=== PATIENT | male | born 1955 | race African-American/Black ===

== ENCOUNTER 2016-10-25 03:26 | Observation (INO) | payer SELFPAY ==
[~2016-10-25] VITALS: Ht 177.8 cm; Wt 72.0 kg
[2016-10-25] VITALS (10 sets, daily range): BP systolic 130–217; BP diastolic 77–110; PULSE 63–82; RESP 14–24; TEMP 98–98.8; O2SAT 96–100
--- NOTE | 2016-10-25 03:44 | PD ---
HPI Chief Complaint: Abdominal Pain Time Seen by Provider: 03:31 Travel History International Travel<30 days: No Contact w/Intl Traveler<30days: No Traveled to known affect area: No History of Present Illness HPI The patient is a 60 year old male who presents to the [facility] emergency department with a history of left flank pain that he reports began at 10 PM last night. The patient reports that the pain is constant and a 10 out of 10 in severity. He reports that the pain is sharp in character. He reports that it has been associated with nausea and vomiting. He reports that he vomited approximately 10 times. He denies having any diarrhea. He last moved his bowels earlier this evening. He reports that he did not check to see if there is any blood in his stool. He denies having any dysuria, urinary frequency, or urinary urgency. He denies seeing any blood in his urine. He denies ever having a pain like this previously. He denies having any recent trauma or injury to the area. He denies having any radiation of the pain. He reports that the only thing that makes it better is to lay on his side in the position. He denies any aggravating factors. On review of systems, the patient denies having any recent known fevers, cough, congestion, neck pain, chest pain, shortness of breath, diarrhea, or neurologic symptoms. [facility] Past Medical History Narrative Medical The patient's past medical history is reportedly none. Past Surgical History Narrative Surgical The patient's past surgical history is reportedly none. Social History Alcohol Use: No Tobacco Use: Yes (one pack per day) Substance Use: No Allergies-Medications (Allergen,Severity, Reaction): Coded Allergies: No Known Allergies (Unverified , 10/25/16) Narrative Medication The patient denies taking any prescribed medications. Review of Systems Except as stated in HPI: all other systems reviewed are Neg General / Constitutional: No: Fever Eyes: No: Visual changes HENT: No: Headaches Cardiovascular: No: Chest Pain or Discomfort Respiratory: No: Shortness of Breath Gastrointestinal: Positive: Nausea, Vomiting, Abdominal Pain, No: Diarrhea Genitourinary: Positive: Flank Pain (left flank pain), No: Urgency, Frequency, Dysuria Musculoskeletal: Positive: Myalgias, No: Pain Skin: No Rash Neurologic: No: Weakness, Focal Abnormalities, Headache, Change in Mentation, Slurred Speech, Sensory Disturbance Psychiatric: No: Depression Endocrine: No: Polydipsia Hematologic/Lymphatic: No: Easy Bruising Physical Exam Narrative General: The patient is a well-developed well-nourished male, uncomfortable appearing on arrival with intermittent dry heaving. Head and Neck exam: Head is normocephalic atraumatic. Eyes: EOMI, pupils are equal round and reactive to light. Nose: Midline septum with pink mucous membranes Mouth: Dentition unremarkable. Moist mucus membranes. Posterior oropharynx is not erythematous. No tonsillar hypertrophy. Uvula midline. Airway patent. Neck: No palpable lymphadenopathy. No nuchal rigidity. No thyromegaly. Cardiovascular: Sinus tachycardia in the low 100 without murmurs, gallops, or rubs. No pulse deficit to the extremities and simultaneous auscultation and palpation of his radial artery. Lungs: Clear to auscultation bilaterally. No wheezes, rhonchi, or rales. Abdomen: Soft, without tenderness to palpation in all 4 quadrants of the abdomen. No guarding, rebound, or rigidity. Normal bowel sounds are audible. No tenderness on palpation of McBurney's point. Negative Banks's sign. Extremities: No clubbing, cyanosis, or edema. 2+ pulses in all 4 extremities. No calf tenderness on palpation. Back: No spinous process tenderness to palpation. Left-sided CVA tenderness on palpation that extends down to the left buttock. Neurologic Exam: Grossly nonfocal Skin Exam: No rash noted. Intact skin that is warm and dry. Data Data Last Documented VS Vital Signs Date Time Temp Pulse Resp B/P (MAP) Pulse Ox O2 Delivery O2 Flow Rate FiO2 10/25/16 07:00 67 17 181/91 (121) 98 Room Air Orders Orders Electrocardiogram (10/25/16 03:38) Complete Blood Count With Diff (10/25/16 03:38) Comprehensive Metabolic Panel (10/25/16 03:38) Prothrombin Time / Inr (Pt) (10/25/16 03:38) Act Partial Throm Time (Ptt) (10/25/16 03:38) C-Reactive Protein (Crp) (10/25/16 03:38) Lipase (10/25/16 03:38) Urinalysis - C+S If Indicated (10/25/16 03:38) Magnesium (Mg) (10/25/16 03:38) Chest, Single Ap (10/25/16 03:38) Iv Access Insert/Monitor (10/25/16 03:38) Ecg Monitoring (10/25/16 03:38) Oximetry (10/25/16 03:38) Lactic Acid (10/25/16 03:38) Sodium Chlor 0.9% 1000 Ml Inj (Ns 1000 M (10/25/16 03:45) Ketorolac Inj (Toradol Inj) (10/25/16 03:45) Prochlorperazine Inj (Compazine Inj) (10/25/16 03:45) Ct Abd/Pel W Iv Contrast(Rout) (10/25/16 05:42) Sodium Chlor 0.9% 1000 Ml Inj (Ns 1000 M (10/25/16 05:45) Iohexol 350 Inj (Omnipaque 350 Inj) (10/25/16 06:22) Lactic Acid (10/25/16 07:07) Admit Order (Ed Use Only) (10/25/16 07:28) Place In Observation (10/25/16 ) Vital Signs (Adult) Q4H (10/25/16 07:29) Activity Oob With Assistance (10/25/16 07:29) Intake + Output KEESHA.QSHIFT (10/25/16 07:29) Diet Npo (10/25/16 Breakfast) Sodium Chlor 0.9% 1000 Ml Inj (Ns 1000 M (10/25/16 07:29) Sodium Chloride 0.9% Flush (Ns Flush) (10/25/16 07:30) Sodium Chloride 0.9% Flush (Ns Flush) (10/25/16 09:00) Ondansetron Inj (Zofran Inj) (10/25/16 07:30) Comprehensive Metabolic Panel (10/26/16 06:00) Complete Blood Count With Diff (10/26/16 06:00) Case Management Consult (10/25/16 07:29) Scd Bilateral/Knee High KEESHA.BID (10/25/16 07:29) Naloxone Inj (Narcan Inj) (10/25/16 07:30) Magnesium Hydroxide Liq (Milk Of Magnesi (10/25/16 07:30) Sennosides (Senokot) (10/25/16 07:30) Bisacodyl Supp (Dulcolax Supp) (10/25/16 07:30) Lactulose Liq (Lactulose Liq) (10/25/16 07:30) Drug Screen, Random Urine (10/25/16 07:32) Labs Laboratory Tests Test 10/25/16 03:53 10/25/16 05:30 10/25/16 07:00 Blood Urea Nitrogen 15 MG/DL Creatinine 1.53 MG/DL Random Glucose 142 MG/DL Total Protein 7.8 GM/DL Albumin 3.7 GM/DL Calcium Level 8.4 MG/DL Magnesium Level 2.1 MG/DL Alkaline Phosphatase 75 U/L Aspartate Amino Transf (AST/SGOT) 26 U/L Alanine Aminotransferase (ALT/SGPT) 16 U/L Total Bilirubin 0.6 MG/DL Sodium Level 139 MEQ/L Potassium Level 3.6 MEQ/L Chloride Level 106 MEQ/L Carbon Dioxide Level 27.5 MEQ/L Anion Gap 6 MEQ/L Estimat Glomerular Filtration Rate 47 ML/MIN Lactic Acid Level 2.4 mmol/L C-Reactive Protein 0.86 MG/DL Lipase 123 U/L White Blood Count 8.9 TH/MM3 Red Blood Count 4.10 MIL/MM3 Hemoglobin 12.6 GM/DL Hematocrit 38.2 % Mean Corpuscular Volume 93.2 FL Mean Corpuscular Hemoglobin 30.7 PG Mean Corpuscular Hemoglobin Concent 32.9 % Red Cell Distribution Width 12.9 % Platelet Count 191 TH/MM3 Mean Platelet Volume 8.6 FL Neutrophils (%) (Auto) 82.6 % Lymphocytes (%) (Auto) 10.8 % Monocytes (%) (Auto) 6.0 % Eosinophils (%) (Auto) 0.4 % Basophils (%) (Auto) 0.2 % Neutrophils # (Auto) 7.3 TH/MM3 Lymphocytes # (Auto) 1.0 TH/MM3 Monocytes # (Auto) 0.5 TH/MM3 Eosinophils # (Auto) 0.0 TH/MM3 Basophils # (Auto) 0.0 TH/MM3 CBC Comment DIFF FINAL Differential Comment Prothrombin Time 10.9 SEC Prothromb Time International Ratio 1.0 RATIO Activated Partial Thromboplast Time 23.0 SEC Urine Color LIGHT-YELLOW Urine Turbidity CLEAR Urine pH 7.5 Urine Specific Seale 1.009 Urine Protein NEG mg/dL Urine Glucose (UA) 70 mg/dL Urine Ketones NEG mg/dL Urine Occult Blood NEG Urine Nitrite NEG Urine Bilirubin NEG Urine Urobilinogen LESS THAN 2.0 MG/DL Urine Leukocyte Esterase NEG Urine RBC LESS THAN 1 /hpf Urine WBC LESS THAN 1 /hpf Urine Squamous Epithelial Cells <1 /hpf Microscopic Urinalysis Comment CULT NOT INDICATED MDM Medical Decision Making Medical Screen Exam Complete: Yes Emergency Medical Condition: Yes Medical Record Reviewed: Yes Interpretation(s) Last Impressions Abdomen/Pelvis CT 10/25/16 0542 Signed Impressions: Service Date/Time: Tuesday, October 25, 2016 06:14 - CONCLUSION: Normal examination. Kelby Madrid Jr., MD Chest X-Ray 10/25/16 0338 Signed Impressions: Service Date/Time: Tuesday, October 25, 2016 04:00 - CONCLUSION: Mild cardiomegaly. Kelby Madrid Jr., MD Differential Diagnosis Kidney stone, versus lower lobe pneumonia, versus musculoskeletal strain, versus viral syndrome, versus perforated ulcer Narrative Course During the course of the patients emergency department visit, the patients history, examination, and differential diagnosis were reviewed with the patient. The patient had IV access obtained and blood work sent for analysis. The patient was placed on a ekg monitor tech with oximetry and blood pressure monitoring. An ECG was done on arrival. The patient's ECG reveals a sinus rhythm heart rate of 61, left ventricular hypertrophy by voltage is noted, QRS duration is 83 ms, QTC 464 ms. T waves are noted to be inverted in V4, V5, V6, lead 1 and aVL. The patient was initially provided normal saline, Toradol 15 mg IV, Compazine 5 mg IV The patients laboratory studies were reviewed and remarkable for a white count of 8.9, hemoglobin 12.6, platelets 191, neutrophils 82.6, CMP is remarkable for creatinine 1.53, glucose 142, calcium 8.4, C-reactive protein is 0.86, lipase 123. Lactic acid is 2.4, PT 10.9, PTT 23. Given the patient's elevated lactate patient was given a second liter of normal saline IV fluids as I suspect that the patient's lactic acidosis is related to dehydration and intractable vomiting per. PT 10.9, PTT 23, urinalysis shows 70 glucose Radiology studies were reviewed and remarkable for a chest x-ray that shows mild cardiomegaly no other acute findings. CT scan of the abdomen and pelvis shows a normal examination, no acute findings. The patient was reexamined and reportedly continued to have pain. The patient will be given additional pain medication to include morphine 4 mg IV, Zofran 4 mg IV. The patient face to be nauseated. The patient will be admitted to the hospital for dehydration, intractable vomiting and pain. The patients results were discussed with the patient, including the plan of care. I explained that further testing and/ or monitoring is indicated based on the patients history, examination, and/ or laboratory findings. Therefore, I recommended admission for additional evaluation. The patient expressed understanding and was agreeable with this plan. The patient was admitted to the hospital in stable condition and [facility] Phys[facility] Communication Physician Communication The patient's case was discussed with Dr. Patel who did agree to admit the patient for further evaluation and treatment at this time. Diagnosis Primary Impression: Dehydration Additional Impressions: Lactic acidosis Intractable vomiting Qualified Codes: R11.2 - Nausea with vomiting, unspecified Admitting Information Admitting Physician Requests: Observation Diane Miller MD Oct 25, 2016 03:44
[2016-10-25] MEDS ORDERED: KETOROLAC TROMETHAMINE 30 MG/ML (IVP) VIAL IV PUSH ONE (03:45)
[2016-10-25] MEDS ORDERED: SODIUM CHLOR 0.9% 1000 ML INJ 1,000 ML IV ONE ×2 (03:45→05:45)
[2016-10-25] MEDS ORDERED: PROCHLORPERAZINE INJ 10 MG/2 ML VIAL IV PUSH ONE (03:45)
[2016-10-25 04:29] LABS: ALKALINE PHOSPHATASE 75 U/L (45-117); TOTAL BILIRUBIN ADULT 0.6 MG/DL (0.2-1.0)
[2016-10-25 04:33] LABS: ALT (GPT) 16 U/L (12-78); ANION GAP 6 MEQ/L (5-15); AST (GOT) 26 U/L (15-37); BICARBONATE 27.5 MEQ/L (21.0-32.0); BLOOD UREA NITROGEN 15 MG/DL (7-18); CHLORIDE 106 MEQ/L (98-107); GLOMERULAR FILTRATION RATE 47 ML/MIN (>89); MAGNESIUM 2.1 MG/DL (1.5-2.5); POTASSIUM 3.6 MEQ/L (3.5-5.1); SODIUM (NA) 139 MEQ/L (136-145)
--- NOTE | 2016-10-25 04:48 | RADRPT ---
EXAM DATE/TIME: 10/25/2016 04:00 [facility] COMPARISON: No previous studies available for comparison. INDICATIONS : Shortness of breath. MEDICAL HISTORY : None. SURGICAL HISTORY : None. ENCOUNTER: Initial ACUITY: 1 day PAIN SCORE: 8/10 LOCATION: Bilateral chest FINDINGS: A single view of the chest demonstrates the lungs to be symmetrically aerated without evidence of mas s, infiltrate or effusion. The heart is mildly enlarged. Osseous structures are intact. CONCLUSION: Mild cardiomegaly. Kelby Madrid Jr., MD on October 25, 2016 at 4:46 Board Certified Radiologist. This report was verified electronically.
[2016-10-25 05:44] LABS: BLOOD, URINE NEG (NEG); GLUCOSE,URINE 70 mg/dL (NEG); KETONE, URINE NEG (NEG); NITRITE,URINE NEG (NEG); PH, URINE 7.5 (5.0-8.5); SQUAMOUS EPITHELIAL CELL URINE <1 /hpf (0-5); URINE COLOR LIGHT-YELLOW (YELLW/STRAW)
[2016-10-25 05:47] LABS: COMMENT (UR) CULT NOT INDICATED; CULTURE IF INDICATED CULT NOT INDICATED
[2016-10-25 05:52] LABS: AUTOMATED NEUTROPHIL # 7.3 TH/MM3 (1.8-7.7); BASOPHIL % 0.2 % (0.0-2.0); EOSINOPHIL % 0.4 % (0.0-4.0); HEMATOCRIT 38.2 % (39.0-51.0); HEMO FLAGS DIFF FINAL; LYMPH % 10.8 % (9.0-44.0); MEAN CELL VOLUME 93.2 FL (80.0-100.0); MEAN CORPUSCULAR HEMOGLOBIN 30.7 PG (27.0-34.0); MEAN CORPUSCULAR HGB CONC 32.9 % (32.0-36.0); NEUT % 82.6 % (16.0-70.0); PLATELET COUNT 191 TH/MM3 (150-450); RED CELL DISTRIBUTION WIDTH 12.9 % (11.6-17.2); WHITE BLOOD COUNT 8.9 TH/MM3 (4.0-11.0)
[2016-10-25 05:59] LABS: PROTHROMBIN TIME - PATIENT 10.9 SEC (9.8-11.6)
[2016-10-25] MEDS ORDERED: IOHEXOL 350 MG/ML 10 ML VIAL (for RAD DIAG) IVCONTRAST ONE (06:22)
--- NOTE | 2016-10-25 06:34 | RADRPT ---
EXAM DATE/TIME: 10/25/2016 06:14 [facility] COMPARISON: No previous studies available for comparison. INDICATIONS : Left flank pain and vomiting. IV CONTRAST: 95 cc Omnipaque 350 (iohexol) IV ORAL CONTRAST: No oral contrast ingested. RADIATION DOSE: 6.64 CTDIvol (mGy) MEDICAL HISTORY : None SURGICAL HISTORY : None. ENCOUNTER: Initial ACUITY: 1 day PAIN SCALE: 7/10 LOCATION: Left abdomen TECHNIQUE: Volumetric scanning of the abdomen and pelvis was performed. Using automated exposure control and ad justment of the mA and/or kV according to patient size, radiation dose was kept as low as reasonably achievable to obtain optimal diagnostic quality images. DICOM format image data is available electro nically for review and comparison. FINDINGS: LOWER LUNGS: The visualized lower lungs are clear. LIVER: Homogeneous density without lesion. There is no dilation of the biliary tree. No calcified gallston es. SPLEEN: Normal size without lesion. PANCREAS: Within normal limits. KIDNEYS: Normal in size and shape. There is no mass, stone or hydronephrosis. ADRENAL GLANDS: Within normal limits. VASCULAR: There is no aortic aneurysm. BOWEL/MESENTERY: The stomach, small bowel, and colon demonstrate no acute abnormality. There is no free intraperitone al air or fluid. ABDOMINAL WALL: Within normal limits. RETROPERITONEUM: There is no lymphadenopathy. BLADDER: No wall thickening or mass. REPRODUCTIVE: Within normal limits. INGUINAL: There is no lymphadenopathy or hernia. MUSCULOSKELETAL: Within normal limits for patient age. CONCLUSION: Normal examination. Kelby Madrid Jr., MD on October 25, 2016 at 6:30 Board Certified Radiologist. This report was verified electronically.
[2016-10-25] MEDS ORDERED: SENNOSIDES 8.6 MG TAB PO PRN (07:30)
[2016-10-25] MEDS ORDERED: MAGNESIUM HYDROXIDE SUSP 30 ML CUP PO PRN (07:30)
[2016-10-25] MEDS ORDERED: LACTULOSE SYRUP 20 GM/30 ML CUP PO PRN (07:30)
[2016-10-25] MEDS ORDERED: ONDANSETRON HCL 4 MG/2 ML VIAL IVP PRN (07:30)
[2016-10-25] MEDS ORDERED: NALOXONE HCL 0.4 MG/ML AMP IV PUSH PRN (07:30)
[2016-10-25] MEDS ORDERED: SODIUM CHLORIDE 0.9% FLUSH 10 ML FLUSH IV FLUSH PRN (07:30)
[2016-10-25] MEDS ORDERED: BISACODYL 10 MG SUPP RECTAL PRN (07:30)
[2016-10-25] MEDS ORDERED: MORPHINE SULFATE 4 MG/ML INJ IV PUSH ONE (08:00)
[2016-10-25] MEDS ORDERED: ONDANSETRON HCL 4 MG/2 ML VIAL IV PUSH ONE (08:00)
[2016-10-25] MEDS: SODIUM CHLOR 0.9% 1000 ML INJ 1,000 ML IV SCH ×2 (08:05→17:28)
[2016-10-25] MEDS: SODIUM CHLORIDE 0.9% FLUSH 10 ML FLUSH IV FLUSH SCH ×2 (09:00→21:00)
--- NOTE | 2016-10-25 09:30 | RADRPT ---
EXAM DATE/TIME: 10/25/2016 06:15 [facility] COMPARISON: No previous studies available for comparison. INDICATIONS : Left back pain. Evaluate for osteomyelitis. RADIATION DOSE: ; Reconstructed from previous dataset, no dose MEDICAL HISTORY : None SURGICAL HISTORY : None. ENCOUNTER: Initial ACUITY: 1 day PAIN SCALE: 7/10 LOCATION: Left flank TECHNIQUE: Volumetric scanning of the lumbar spine was performed. Multiplanar reconstructions in the sagittal, coronal and oblique axial planes were performed. Using automated exposure control and adjustment of the mA and/or kV according to patient size, radiation dose was kept as low as reasonably achievable t o obtain optimal diagnostic quality images. DICOM format image data is available electronically for review and comparison. FINDINGS: VERTEBRAE: Normal vertebral body height. ALIGNMENT: No evidence of subluxation. T12-L1: The thecal sac has a normal diameter. No evidence of disc bulge or protrusion. The neural foramina are patent bilaterally. L1-L2: The thecal sac has a normal diameter. No evidence of disc bulge or protrusion. The neural foramina are patent bilaterally. L2-L3: The thecal sac has a normal diameter. No evidence of disc bulge or protrusion. The neural foramina are patent bilaterally. L3-L4: There is generalized disc bulging at L3-4 flattening in typical space with moderate spinal stenosis. L4-L5: The thecal sac has a normal diameter. No evidence of disc bulge or protrusion. The neural foramina are patent bilaterally. L5-S1: Marked loss of disc space height is evident. Vacuum changes are noted. Generalized bulge is present with moderate bilateral neural foramina encroachment worse on the right than the left. There is no bony destruction, end plates are well-preserved. I did not see anything to suggest osteo myelitis at this time. CONCLUSION: Degenerative disc disease as described above. I do not see evidence for an inflammatory process. MRI with contrast be more sensitive for such. Timi Holm MD FACR on October 25, 2016 at 9:26 Board Certified Radiologist. This report was verified electronically.
[2016-10-25] MEDS ORDERED: LIDOCAINE HCL 1% PF 5 ML AMPULE OTHER ONE (09:42)
[2016-10-25] MEDS ORDERED: PROPOFOL 200 MG/20 ML AMP IV ONE ×2 (09:42→16:02)
[2016-10-25] MEDS ORDERED: ESMOLOL HCL 100 MG/10 ML VIAL IV ONE (09:42)
[2016-10-25] MEDS ORDERED: MORPHINE SULFATE 4 MG/ML INJ IV ONE (09:42)
[2016-10-25] MEDS ORDERED: SUCCINYLCHOLINE CHLORIDE 100 MG/5 ML SYRINGE IV PUSH ONE (09:42)
[2016-10-25] MEDS ORDERED: LABETALOL HCL 100 MG/20 ML VIAL IV ONE (09:42)
[2016-10-25] MEDS ORDERED: THIAMINE HCL 100 MG TAB PO ONE (11:30)
--- NOTE | 2016-10-25 12:01 | HHI.HP ---
HPI Service [facility] Primary Care Physician No Primary Care Physician Admission Diagnosis Dehydration, intractable vomiting, left flank pain Diagnoses: Travel History International Travel<30 Days: No Contact w/Intl Traveler <30 Da: No Traveled to Known Affected Are: No History of Present Illness 60-year-old male with a history of H. pylori in 2003, who presents with acute onset of constant, severe, sharp, nonradiating left flank pain beginning around 10 PM last night. He also reports nausea beginning around 10 PM last night, with multiple episodes of nonbloody, [id number]-[id number] emesis. He says he does feel as if he has fevers and chills since this time, however has not measured any fevers. He denies any diarrhea or constipation. He denies any aggravating or relieving factors. He says he does feel lightheaded since last night, however does not feel as if she will pass out; denies any dizziness. He reports previously feeling all right. Denies any chest pain, shortness of breath. Denies any recent injuries. Denies any leg pain. Review of Systems Except as stated in HPI: all other systems reviewed are Neg Past Family Social History Past Medical History Patient denies any past medical history, however another profile here in 2003 shows a presented with nausea and hematemesis, underwent EGD, biopsies from which showed H. pylori. Past Surgical History Patient denies any history of surgeries. Although reviewing duplicate profile, and appears he had an EGD with biopsy performed in 2003 Reported Medications Patient denies taking any medications. Allergies: Coded Allergies: No Known Allergies (Unverified , 10/25/16) Family History Patient reports both parents , does not know what they from Social History Patient smokes on average one pack per day since he was a teenager. Drinks on average 2 beers per day. Denies any history of withdrawal. He initially denies illicit drugs, however his girlfriend at bedside reports he does cocaine. Physical Exam Vital Signs Vital Signs Date Time Temp Pulse Resp B/P (MAP) Pulse Ox O2 Delivery O2 Flow Rate FiO2 10/25/16 08:36 98.0 70 21 184/102 (129) 96 10/25/16 08:29 10/25/16 08:17 82 17 182/100 (127) 98 Room Air 10/25/16 07:00 67 17 181/91 (121) 98 Room Air 10/25/16 06:10 78 14 181/96 (124) 99 Room Air 10/25/16 03:34 63 24 217/107 (143) 100 Physical Exam GENERAL: Somnolent, wakes up for exam. Alert and oriented 3. SKIN: No rashes, ecchymoses or lesions. Cool and dry. HEAD: Atraumatic. Normocephalic. No temporal or scalp tenderness. EYES: Pupils equal round and reactive. Extraocular motions intact. No scleral icterus. No injection or drainage. ENT: Nose without bleeding, purulent drainage or septal hematoma. Throat without erythema, tonsillar hypertrophy or exudate. Uvula midline. Airway patent. NECK: Trachea midline. No JVD or lymphadenopathy. Supple, nontender, no meningeal signs. CARDIOVASCULAR: Regular rate and rhythm without murmurs, gallops, or rubs. RESPIRATORY: Clear to auscultation. Breath sounds equal bilaterally. No wheezes , rales, or rhonchi. GASTROINTESTINAL: Abdomen soft, non-tender, nondistended. No hepato-splenomegaly , or palpable masses. No guarding. MUSCULOSKELETAL: Extremities without clubbing, cyanosis, or edema. No joint tenderness, effusion, or edema noted. No calf tenderness. Negative Homans sign bilaterally. NEUROLOGICAL: Awake and alert. Cranial nerves II through XII intact. Motor and sensory grossly within normal limits. Five out of 5 muscle strength in all muscle groups. Normal speech. Laboratory Laboratory Tests Test 10/25/16 03:53 10/25/16 05:30 10/25/16 07:00 Blood Urea Nitrogen 15 Creatinine 1.53 Random Glucose 142 Total Protein 7.8 Albumin 3.7 Calcium Level 8.4 Magnesium Level 2.1 Alkaline Phosphatase 75 Aspartate Amino Transf (AST/SGOT) 26 Alanine Aminotransferase (ALT/SGPT) 16 Total Bilirubin 0.6 Sodium Level 139 Potassium Level 3.6 Chloride Level 106 Carbon Dioxide Level 27.5 Anion Gap 6 Estimat Glomerular Filtration Rate 47 Lactic Acid Level 2.4 2.6 C-Reactive Protein 0.86 Lipase 123 White Blood Count 8.9 Red Blood Count 4.10 Hemoglobin 12.6 Hematocrit 38.2 Mean Corpuscular Volume 93.2 Mean Corpuscular Hemoglobin 30.7 Mean Corpuscular Hemoglobin Concent 32.9 Red Cell Distribution Width 12.9 Platelet Count 191 Mean Platelet Volume 8.6 Neutrophils (%) (Auto) 82.6 Lymphocytes (%) (Auto) 10.8 Monocytes (%) (Auto) 6.0 Eosinophils (%) (Auto) 0.4 Basophils (%) (Auto) 0.2 Neutrophils # (Auto) 7.3 Lymphocytes # (Auto) 1.0 Monocytes # (Auto) 0.5 Eosinophils # (Auto) 0.0 Basophils # (Auto) 0.0 CBC Comment DIFF FINAL Differential Comment Prothrombin Time 10.9 Prothromb Time International Ratio 1.0 Activated Partial Thromboplast Time 23.0 Urine Color LIGHT-YELLOW Urine Turbidity CLEAR Urine pH 7.5 Urine Specific [place] 1.009 Urine Protein NEG Urine Glucose (UA) 70 Urine Ketones NEG Urine Occult Blood NEG Urine Nitrite NEG Urine Bilirubin NEG Urine Urobilinogen LESS THAN 2.0 Urine Leukocyte Esterase NEG Urine RBC LESS THAN 1 Urine WBC LESS THAN 1 Urine Squamous Epithelial Cells <1 Microscopic Urinalysis Comment CULT NOT INDICATED Urine Opiates Screen NEG Urine Barbiturates Screen NEG Urine Amphetamines Screen NEG Urine Benzodiazepines Screen NEG Urine Cocaine Screen POS Urine Cannabinoids Screen NEG Result Diagram: 10/25/16 0530 10/25/16 0353 Caprini VTE Risk Assessment Caprini VTE Risk Assessment: No/Low Risk (score <= 1) Caprini Risk Assessment Model Point Value = 1 Point Value = 2 Point Value = 3 Point Value = 5 Age 41-60 Minor surgery BMI > 25 kg/m2 Swollen legs Varicose veins or History of unexplained or recurrent spontaneous Oral contraceptives or hormone replacement Sepsis (< 1 month) Serious lung disease, including pneumonia (< 1 month) Abnormal pulmonary function Acute myocardial infarction Congestive heart failure (< 1 month) History of inflammatory bowel disease Medical patient at bed rest Age 61-74 Arthroscopic surgery Major open surgery (> 45 min) Laparoscopic surgery (> 45 min) Malignancy Confined to bed (> 72 hours) Immobilizing plaster cast Central venous access Age >= 75 History of VTE Family history of VTE Factor V Leiden Prothrombin [id number] Lupus anticoagulant Anticardiolipin antibodies Elevated serum homocysteine Heparin-induced thrombocytopenia Other congenital or acquired thrombophilia Stroke (< 1 month) Elective arthroplasty Hip, pelvis, or leg fracture Acute spinal cord injury (< 1 month) Prophylaxis Regimen Total Risk Factor Score Risk Level Prophylaxis Regimen 0-1 Low Early ambulation 2 Moderate Order ONE of the following: *Sequential Compression Device (SCD) *Heparin 5000 units SQ BID 3-4 Higher Order ONE of the following medications: *Heparin 5000 units SQ TID *Enoxaparin/Lovenox 40 mg SQ daily (WT < 150 kg, CrCl > 30 mL/min) *Enoxaparin/Lovenox 30 mg SQ daily (WT < 150 kg, CrCl > 10-29 mL/min) *Enoxaparin/Lovenox 30 mg SQ BID (WT < 150 kg, CrCl > 30 mL/min) AND/OR *Sequential Compression Device (SCD) 5 or more Highest Order ONE of the following medications: *Heparin 5000 units SQ TID (Preferred with Epidurals) *Enoxaparin/Lovenox 40 mg SQ daily (WT < 150 kg, CrCl > 30 mL/min) *Enoxaparin/Lovenox 30 mg SQ daily (WT < 150 kg, CrCl > 10-29 mL/min) *Enoxaparin/Lovenox 30 mg SQ BID (WT < 150 kg, CrCl > 30 mL/min) AND *Sequential Compression Device (SCD) Assessment and Plan Assessment and Plan //Left-sided flank pain. //Nausea and vomiting -Uncertain etiology at this time. -Lipase, LFTs within normal limits. -Lipase elevation, chronic smoking gives the possibility of ischemic colitis CT abdomen, lumbar CT with no acute findings. -Patient does have a history of H. pylori seen on gastric biopsy under another profile in 2003. -Possible gastroenteritis, food poisoning. Patient did report a perfume smelling [place] which one to 2 days prior to presentation. -Possible gastroparesis. Order A1c. -Continue IV fluids, antiemetics. -Consult GI. //Lactic acidosis. Lactic acid 2.4 and admission, subsequently 2.6. -We'll give thiamine, repeat 4 hours. //Chronic alcohol use. Average 2 drinks per day reported. LFTs unremarkable. No history of withdrawal. Continue to monitor. //Renal insufficiency. Creatinine 1.53, GFR 47 Uncertain chronicity. Expect this may be due to dehydration. Continue IV fluids. Continue to monitor //Cocaine abuse. Positive on urine. Cessation counseling provided. //Tobacco abuse. Cessation counseling provided. Cessation strongly advised. //Accelerated Hypertension. Systolic blood pressure 217 on admission, subsequently 180s. Unknown baseline. Likely secondary to stress versus cocaine. Continue to monitor closely. As needed blood pressure medications ordered. //Prophylaxis. SCDs. Discussed Condition With Patient, ED physician, girlfriend at bedside Juanito Patel MD Oct 25, 2016 12:01
--- NOTE | 2016-10-25 13:44 | PD.CONS ---
HPI History of Present Illness This is a 60 year old male who presented to the emergency room for evaluation of left flank pain. The patient reports he had the sudden onset of constant sharp pain in his left side/hip last night around nausea/vomiting. He initially thought this was gas and took some baking soda. This did not help with his pain. The pain is aggravated by movement, especially turning. Around the same time, he started having multiple episodes of nausea/vomiting- consisting of bilious material, but no blood. He also reports some mild constipation, but states he has not taken anything for this. He is not having any melena or hematochezia. He denies any change in appetite or weight loss. He denies any difficulty urinating, painful urination, or hematuria. CT scan abdomen and pelvis with iv contrast (10/25/16)----> normal examination. He was noted to have mild anemia with an HH of 12.6/38.2. He denies any prior history. He does have frequent heartburn/reflux and takes Fadia [place] as needed. Records show that he underwent EGD (04/03/03) with Dr. Leal and this revealed gastritis in his stomach. Pathology revealed chronic gastritis with mild acute inflammatory activity. A anastacia stain reveals numerous organisms morphologically consistent with helicobacter pylori. He does not recall if he was treated for this. He does not take Ibuprofen. He does drink ETOH and this varies, usually 2-3 beers per day. (Maria D Harper) PFSH Past Medical History HTN Joint pain Tendonitis H. Pylori Gastritis Past Surgical History EGD Hand surgery (Maria D Harper) Coded Allergies: No Known Allergies (Unverified , 10/25/16) Medications Allergies Coded Allergies Type Severity Reaction Last Updated Verified No Known Allergies 10/25/16 No Active Scripts Medications Dose Route/Sig Max Daily Dose Days Date Category No Active Prescriptions or Reported Medications Rx Family History Patient reports both parents , does not know what they from. Both brothers have prostate issues Social History Patient smokes on average one pack per day. Drinks on average 2 beers per day. + Cocaine use. (Maria D Harper) Review of Systems Constitutional: COMPLAINS OF: Fatigue, DENIES: Change in appetite Respiratory: DENIES: Cough Cardiovascular: DENIES: Chest pain Gastrointestinal: COMPLAINS OF: Abdominal pain, Constipation, Nausea, Vomiting , Heartburn, DENIES: Black stools, Bloody stools, Hematemesis Musculoskeletal: COMPLAINS OF: Joint pain Hematologic/lymphatic: DENIES: Bruising Neurologic: DENIES: Headache Psychiatric: DENIES: Confusion (Maria D Harper) GI Exam Vitals I&O Vital Signs Date Time Temp Pulse Resp B/P (MAP) Pulse Ox O2 Delivery O2 Flow Rate FiO2 10/25/16 12:24 78 20 183/110 (134) 97 10/25/16 08:36 98.0 70 21 184/102 (129) 96 10/25/16 08:29 10/25/16 08:17 82 17 182/100 (127) 98 Room Air 10/25/16 07:00 67 17 181/91 (121) 98 Room Air 10/25/16 06:10 78 14 181/96 (124) 99 Room Air 10/25/16 03:34 63 24 217/107 (143) 100 I/O 10/24/16 10/24/16 10/24/16 10/25/16 10/25/16 10/25/16 07:00 15:00 23:00 07:00 15:00 23:00 Intake Total 1000 ml 1000 ml Output Total 2000 ml Balance 1000 ml -1000 ml Intake IV Total 1000 ml 1000 ml Output Urine Total 2000 ml # Voids 1 Imaging Last Impressions Lumbar Spine CT 10/25/16 0825 Signed Impressions: Service Date/Time: Tuesday, October 25, 2016 06:15 - CONCLUSION: Degenerative disc disease as described above. I do not see evidence for an inflammatory process. MRI with contrast be more sensitive for such. Timi Holm MD FACR Abdomen/Pelvis CT 10/25/16 0542 Signed Impressions: Service Date/Time: Tuesday, October 25, 2016 06:14 - CONCLUSION: Normal examination. Kelby Madrid Jr., MD Chest X-Ray 10/25/16 0338 Signed Impressions: Service Date/Time: Tuesday, October 25, 2016 04:00 - CONCLUSION: Mild cardiomegaly. Kelby Madrid Jr., MD Laboratory Test 10/25/16 03:53 10/25/16 05:30 10/25/16 07:00 10/25/16 13:00 Blood Urea Nitrogen 15 MG/DL Creatinine 1.53 MG/DL Random Glucose 142 MG/DL Total Protein 7.8 GM/DL Albumin 3.7 GM/DL Calcium Level 8.4 MG/DL Magnesium Level 2.1 MG/DL Alkaline Phosphatase 75 U/L Aspartate Amino Transf (AST/SGOT) 26 U/L Alanine Aminotransferase (ALT/SGPT) 16 U/L Total Bilirubin 0.6 MG/DL Sodium Level 139 MEQ/L Potassium Level 3.6 MEQ/L Chloride Level 106 MEQ/L Carbon Dioxide Level 27.5 MEQ/L Anion Gap 6 MEQ/L Estimat Glomerular Filtration Rate 47 ML/MIN Lactic Acid Level 2.4 mmol/L 2.6 mmol/L C-Reactive Protein 0.86 MG/DL Lipase 123 U/L White Blood Count 8.9 TH/MM3 Red Blood Count 4.10 MIL/MM3 Hemoglobin 12.6 GM/DL Hematocrit 38.2 % Mean Corpuscular Volume 93.2 FL Mean Corpuscular Hemoglobin 30.7 PG Mean Corpuscular Hemoglobin Concent 32.9 % Red Cell Distribution Width 12.9 % Platelet Count 191 TH/MM3 Mean Platelet Volume 8.6 FL Neutrophils (%) (Auto) 82.6 % Lymphocytes (%) (Auto) 10.8 % Monocytes (%) (Auto) 6.0 % Eosinophils (%) (Auto) 0.4 % Basophils (%) (Auto) 0.2 % Neutrophils # (Auto) 7.3 TH/MM3 Lymphocytes # (Auto) 1.0 TH/MM3 Monocytes # (Auto) 0.5 TH/MM3 Eosinophils # (Auto) 0.0 TH/MM3 Basophils # (Auto) 0.0 TH/MM3 CBC Comment DIFF FINAL Differential Comment Prothrombin Time 10.9 SEC Prothromb Time International Ratio 1.0 RATIO Activated Partial Thromboplast Time 23.0 SEC Urine Color LIGHT-YELLOW Urine Turbidity CLEAR Urine pH 7.5 Urine Specific [place] 1.009 Urine Protein NEG mg/dL Urine Glucose (UA) 70 mg/dL Urine Ketones NEG mg/dL Urine Occult Blood NEG Urine Nitrite NEG Urine Bilirubin NEG Urine Urobilinogen LESS THAN 2.0 MG/DL Urine Leukocyte Esterase NEG Urine RBC LESS THAN 1 /hpf Urine WBC LESS THAN 1 /hpf Urine Squamous Epithelial Cells <1 /hpf Microscopic Urinalysis Comment CULT NOT INDICATED Urine Opiates Screen NEG Urine Barbiturates Screen NEG Urine Amphetamines Screen NEG Urine Benzodiazepines Screen NEG Urine Cocaine Screen POS Urine Cannabinoids Screen NEG Physical Examination HEENT: Normocephalic; atraumatic; no jaundice. CHEST: CTA CARDIAC: RRR ABDOMEN: Soft, nondistended, nontender; no hepatosplenomegaly; bowel sounds are present in all four quadrants. 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 EXTREMITIES: No clubbing, cyanosis, or edema. SKIN: Normal; no rash; no jaundice. 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 (Maria D Harper) Assessment and Plan Plan ASSESSMENT: - N/V. Woke up with right sided hip/low back pain and n/v. He has continued to have n/v today. He reports frequent heartburn/reflux and takes Fadia [place] as needed. CT scan abdomen and pelvis with iv contrast (10/25/16 )----> normal examination. EGD (04/03/03) with Dr. Leal and this revealed gastritis in his stomach. Pathology revealed chronic gastritis with mild acute inflammatory activity. A anastacia stain reveals numerous organisms morphologically consistent with helicobacter pylori. He does not recall if he was treated for this. He does not take Ibuprofen. He does drink ETOH and this varies, usually 2-3 beers per day. NPO. Will plan for EGD today. - GERD. PPI - Anemia. HH 12.6/38.2. - Right sided hip/low back pain. R/T movement, especially turning. Seems to be more musculoskeletal. PLAN: - Plan for EGD today - Obtain consents - NPO - Add Protonix 40mg IV daily - Monitor HH - Transfuse as necessary - Supportive care - Further recommendations to follow based on results of above - Pt seen and examined by Dr. Petersen and myself and this note is written on his behalf (Maria D Harper) Physician Comments Patient seen and examined Agree with above Continue with current supportive care Monitor labs We will plan on pursuing an EGD today (Chase Petersen MD) Maria D Harper Oct 25, 2016 13:44 Chase Petersen MD Oct 25, 2016 15:44
[2016-10-25] MEDS: cloNIDine HCL 0.1 MG TAB PO PRN (14:29)
[2016-10-25] MEDS ORDERED: PANTOPRAZOLE SODIUM 40 MG VIAL IV PUSH SCH (15:00)
--- NOTE | 2016-10-25 16:17 | PD.PROCEDR ---
GI Procedure REFERRING PHYSICIAN Dr. Patel PROCEDURE PERFORMED EGD with biopsy and cautery and clip placement INDICATION FOR PROCEDURE Nausea and vomiting PROCEDURE: The procedure, risks and benefits were discussed with Mr. Gee and informed consent was obtained. Anesthesia sedated him with Diprivan. He was placed in the left lateral decubitus position. EGD: The Pentax videoscope was introduced through the oropharynx and advanced to the second portion of the duodenum under direct visualization. Retroflexion was performed in the stomach. FINDINGS: The esophagus this appeared to be unremarkable except for an irregular Z line was biopsied The stomach there was patchy erythema in the gastric body and antrum with superficial erosions no ulcerations no blood or bleeding antral biopsies were taken for further evaluation retroflexion was unremarkable The duodenum there was a small duodenal bulb AVM I cauterized it and as soon as I touched it started to bleed I continued with cautery it would not stop bleeding and therefore I placed 2 clips and with that we were able to obtain hemostasis the rest of the duodenum was unremarkable ESTIMATED BLOOD LOSS: Minimal SPECIMENS REMOVED: Esophageal and gastric biopsies taken COMPLICATIONS: None IMPRESSION: Irregular Z line Erosive gastritis Duodenal AVM PLAN: Await biopsies Continue PPI Continue with current supportive care and monitor labs Chase Petersen MD Oct 25, 2016 16:17
[2016-10-25] MEDS ORDERED: LACTATED RINGER'S 1000 ML INJ 1,000 ML ONE (17:01)
[2016-10-25 17:21] LABS: HEMOGLOBIN A1b 1.4 %; HEMOGLOBIN Ao 87.5 %; HEMOGLOBIN LA1C 1.9 %; HEMOGLOBIN P3 3.3 %
[2016-10-25] MEDS ORDERED: DO NOT ADM ANY ANTICOAGULANT DRUGS PRN (18:15)
--- NOTE | 2016-10-25 20:45 | EKG ---
Date Performed: 10/25/2016 Time Performed: 03:43:11 PTAGE: 60 years EKG: Sinus rhythm LEFT VENTRICULAR HYPERTROPHY AND ST-T CHANGE ABNORMAL ECG NO PREVIOUS TRACING DOCTOR: Keron Mirza Interpretating Date/Time 10/25/2016 20:42:29
[2016-10-25] MEDS: MORPHINE SULFATE 4 MG/ML INJ IV PUSH PRN (23:38)
[2016-10-26 03:25] VITALS: BP 170/94; PULSE 75; RESP 18; TEMP 98.2; O2SAT 97
[2016-10-26] MEDS: SODIUM CHLOR 0.9% 1000 ML INJ 1,000 ML IV SCH (04:09)
[2016-10-26] MEDS: MORPHINE SULFATE 4 MG/ML INJ IV PUSH PRN (06:03)
[2016-10-26 07:29] LABS: AUTOMATED NEUTROPHIL # 3.6 TH/MM3 (1.8-7.7); BASOPHIL % 0.2 % (0.0-2.0); EOSINOPHIL # 0.1 TH/MM3 (0-0.4); EOSINOPHIL % 1.4 % (0.0-4.0); HEMATOCRIT 42.3 % (39.0-51.0); HEMO FLAGS DIFF FINAL; LYMPH % 46.7 % (9.0-44.0); LYMPHOCYTE # 4.1 TH/MM3 (1.0-4.8); MONO % 10.8 % (0.0-8.0); NEUT % 40.9 % (16.0-70.0); PLATELET COUNT 201 TH/MM3 (150-450); RED CELL DISTRIBUTION WIDTH 13.1 % (11.6-17.2); WHITE BLOOD COUNT 8.8 TH/MM3 (4.0-11.0)
[2016-10-26 07:41] VITALS: BP 203/110; PULSE 66; RESP 18; TEMP 98.7; O2SAT 96
[2016-10-26 08:03] LABS: ANION GAP 8 MEQ/L (5-15); AST (GOT) 18 U/L (15-37); BICARBONATE 23.2 MEQ/L (21.0-32.0); BLOOD UREA NITROGEN 10 MG/DL (7-18); CHLORIDE 109 MEQ/L (98-107); GLOMERULAR FILTRATION RATE 62 ML/MIN (>89); POTASSIUM 3.5 MEQ/L (3.5-5.1); SODIUM (NA) 140 MEQ/L (136-145)
[2016-10-26 08:06] LABS: ALKALINE PHOSPHATASE 73 U/L (45-117); ALT (GPT) 19 U/L (12-78); TOTAL BILIRUBIN ADULT 0.7 MG/DL (0.2-1.0)
[2016-10-26] MEDS: cloNIDine HCL 0.1 MG TAB PO PRN (08:13)
[2016-10-26] MEDS: SODIUM CHLORIDE 0.9% FLUSH 10 ML FLUSH IV FLUSH SCH (08:13)
[2016-10-26 08:14] VITALS: BP 190/110
--- NOTE | 2016-10-26 08:35 | HHI.PR ---
Subjective Remarks Follow up for left flank pain, nausea/vomiting. The patient reports continued left flank/groin pain, temporarily relieved by IV morphine. Denies any epigastric or upper abdominal pain. He reports a few episodes of nausea but no vomiting overnight. He tolerated dinner last night. He has been passing flatus, but no BM since prior to coming to the hospital yesterday. Denies fevers/ chills. He denies any other medical complaints at this time. Objective Vitals Vital Signs Date Time Temp Pulse Resp B/P (MAP) Pulse Ox O2 Delivery O2 Flow Rate FiO2 10/26/16 08:14 190/110 (136) 10/26/16 07:41 98.7 66 18 203/110 (141) 96 10/26/16 03:25 98.2 75 18 170/94 (119) 97 10/25/16 23:34 98.8 72 18 167/95 (119) 98 10/25/16 19:27 98.2 78 18 130/77 (94) 97 10/25/16 16:30 97.4 74 16 149/93 (111) 97 Nasal Cannula 2 10/25/16 16:15 98.0 75 16 149/93 (111) 97 Nasal Cannula 2 10/25/16 15:14 172/99 (123) 10/25/16 14:40 186/108 (134) 10/25/16 12:24 78 20 183/110 (134) 97 10/25/16 08:36 98.0 70 21 184/102 (129) 96 10/25/16 08:29 I/O 10/25/16 10/25/16 10/25/16 10/26/16 10/26/16 10/26/16 07:00 15:00 23:00 07:00 15:00 23:00 Intake Total 1000 ml 1000 ml 400 ml Output Total 2000 ml 600 ml Balance 1000 ml -1000 ml -200 ml Intake IV Total 1000 ml 1000 ml 0 ml Other 400 ml Output Urine Total 2000 ml 600 ml # Voids 1 Result Diagram: 10/26/1662410/26/16624 Imaging Last Impressions Lumbar Spine CT 10/25/16824 Signed Impressions: Service Date/Time: Tuesday, October 25, 2016 06:15 - CONCLUSION: Degenerative disc disease as described above. I do not see evidence for an inflammatory process. MRI with contrast be more sensitive for such. Timi Holm MD FACR Abdomen/Pelvis CT 10/25/16 0542 Signed Impressions: Service Date/Time: Tuesday, October 25, 2016 06:14 - CONCLUSION: Normal examination. Kelby Madrid Jr., MD Chest X-Ray 10/25/16 0338 Signed Impressions: Service Date/Time: Tuesday, October 25, 2016 04:00 - CONCLUSION: Mild cardiomegaly. Kelby Madrid Jr., MD Objective Remarks GENERAL: Well-nourished, well-developed middle aged male patient in NAD. SKIN: Warm and dry. No rash. HEENT: Normocephalic. Atraumatic. Pupils equal and round. Mucous membranes pink and moist. NECK: Supple. Trachea midline. CARDIOVASCULAR: Regular rate and rhythm. S1, S2 noted. No murmur appreciated. RESPIRATORY: No accessory muscle use. Clear to auscultation. Breath sounds equal bilaterally. GASTROINTESTINAL: Abdomen soft, non-tender, nondistended. Normoactive bowel sounds x4. MUSCULOSKELETAL: No obvious deformities. Extremities without clubbing, cyanosis , or edema. NEUROLOGICAL: Awake and alert. No obvious cranial nerve deficits. Motor grossly within normal limits. Normal speech. PSYCHIATRIC: Appropriate mood and affect; insight and judgment normal. Medications and IVs Current Medications Medications (Trade) Dose Ordered Sig/[place] Route Start Time Stop Time Status Last Admin Sodium Chloride 1,000 ml @ 100 mls/hr Q10H IV 10/25/16 07:29 10/26/16 04:09 (NS Flush) 2 ml UNSCH PRN IV FLUSH 10/25/16 07:30 (NS Flush) 2 ml BID IV FLUSH 10/25/16 09:00 (Zofran Inj) 4 mg Q6H PRN IVP 10/25/16 07:30 (Narcan Inj) 0.4 mg UNSCH PRN IV PUSH 10/25/16 07:30 (Milk Of Magnesia Liq) 30 ml Q12H PRN PO 10/25/16 07:30 (Senokot) 17.2 mg Q12H PRN PO 10/25/16 07:30 (Dulcolax Supp) 10 mg DAILY PRN RECTAL 10/25/16 07:30 (Lactulose Liq) 30 ml DAILY PRN PO 10/25/16 07:30 (Pneumovax-23 Inj) 25 mcg ONCE ONCE IM 10/26/16 10:00 10/26/16 10:01 (Flu (Quadrivalent) Vaccine Inj) 0.5 ml ONCE ONCE IM 10/26/16 10:00 10/26/16 10:01 (Catapres) 0.1 mg Q6H PRN PO 10/25/16 12:00 10/26/16 08:13 Miscellaneous Information ALL NURSING DEPARTME... UNSCH PRN .XX 10/25/16 18:15 10/26/16 18:14 (Morphine Inj) 2 mg Q3H PRN IV PUSH 10/25/16 23:30 10/26/16 06:03 (Protonix) 40 mg DAILY PO 10/26/16 09:00 10/26/16 08:12 A/P Assessment and Plan 60-year-old male with history of H. pylori 2003, hypertension, presents with acute onset of left flank pain with nausea/vomiting. Left-sided flank pain with Intractable Nausea and vomiting: Reviewed labs, lipase and LFTs wnl. Afebrile, no leukocytosis. Lactic acid elevation likely secondary to intractable vomiting. CT abd/pelvis images reviewed, no acute findings. Patient does have a history of H. pylori seen on gastric biopsy under another profile in 2003. Also possible gastroenteritis/food poisoning, patient ate foul smelling sandwich 1-2days before symptoms started -Consulted GI -EGD done 10/25 showed irregular Zline, erosive gastritis, duodenal AVM -Continue Protonix 40mg daily, IV fluids, antiemetics prn. -Diet advanced, patient tolerating well Lactic acidosis: Lactic acid 2.4 upon admission, subsequently 2.6. Suspect secondary to intractable vomiting vs cocaine use. -Given IV thiamine, repeat lactate 2.0. Chronic alcohol use: Average 2 drinks per day reported. LFTs unremarkable. No history of withdrawal. -Continue to monitor. Acute Renal insufficiency. Creatinine 1.53, GFR 47 Uncertain chronicity. Expect this may be due to dehydration. -Continue IV fluids. -Continue to monitor Cocaine abuse: Positive on urine drug screen. Cessation counseling provided. Tobacco abuse: Cessation counseling provided. Cessation strongly advised. Accelerated Hypertension: Systolic blood pressure 217 on admission, subsequently 180s. Unknown baseline. Likely secondary to stress versus cocaine. Patient reports being on unknown antihypertensive 6months ago, does not recall the name, was unable to obtain a refill. -Continue to monitor closely. -Clonidine prn -Started on Norvasc 10mg daily DVT Prophylaxis: SCDs Discharge Planning 0840hrs: Possible discharge later today if cleared by GI and patient continues to tolerate oral intake. 1300hrs: Patient seen by GI earlier today, cleared for discharge. He tolerated oral intake for lunch. Agrees to discharge home. Discharge patient to home Condition on discharge: Improved Heart Healthy Diet as tolerated Ad Vickie activity Rx written: amlodipine 10mg daily, pantoprazole 40mg daily Follow-up with primary care physician and gastroenterology Amrita Gillespie PA-C Oct 26, 2016 08:35
[2016-10-26] MEDS ORDERED: PANTOPRAZOLE SOD 40 MG DELAYED RELEASE TAB PO SCH (09:00)
[2016-10-26] MEDS ORDERED: PNEUMOCOCCAL POLYVALENT INJ 25 MCG/0.5 ML SYR IM ONE (10:00)
[2016-10-26] MEDS ORDERED: INFLUENZA VIRUS VACCINE (QUADRIVALENT) 0.5 ML SYR IM ONE (10:00)
--- NOTE | 2016-10-26 11:11 | HHI.GIFU ---
Subjective Remarks Resting in bed. Tolerating diet. Still with left inguinal pain radiating to left hip. (Maria D Harper) Objective Vitals I&O Vital Signs Date Time Temp Pulse Resp B/P (MAP) Pulse Ox O2 Delivery O2 Flow Rate FiO2 10/26/16 08:14 190/110 (136) 10/26/16 07:41 98.7 66 18 203/110 (141) 96 10/26/16 03:25 98.2 75 18 170/94 (119) 97 10/25/16 23:34 98.8 72 18 167/95 (119) 98 10/25/16 19:27 98.2 78 18 130/77 (94) 97 10/25/16 16:30 97.4 74 16 149/93 (111) 97 Nasal Cannula 2 10/25/16 16:15 98.0 75 16 149/93 (111) 97 Nasal Cannula 2 10/25/16 15:14 172/99 (123) 10/25/16 14:40 186/108 (134) 10/25/16 12:24 78 20 183/110 (134) 97 I/O 10/25/16 10/25/16 10/25/16 10/26/16 10/26/16 10/26/16 07:00 15:00 23:00 07:00 15:00 23:00 Intake Total 1000 ml 1000 ml 400 ml Output Total 2000 ml 600 ml Balance 1000 ml -1000 ml -200 ml Intake IV Total 1000 ml 1000 ml 0 ml Other 400 ml Output Urine Total 2000 ml 600 ml # Voids 1 Laboratory Laboratory Tests Test 10/25/16 13:00 10/26/16 06:25 Lactic Acid Level 2.0 White Blood Count 8.8 Red Blood Count 4.50 Hemoglobin 13.9 Hematocrit 42.3 Mean Corpuscular Volume 94.0 Mean Corpuscular Hemoglobin 31.0 Mean Corpuscular Hemoglobin Concent 33.0 Red Cell Distribution Width 13.1 Platelet Count 201 Mean Platelet Volume 9.7 Neutrophils (%) (Auto) 40.9 Lymphocytes (%) (Auto) 46.7 Monocytes (%) (Auto) 10.8 Eosinophils (%) (Auto) 1.4 Basophils (%) (Auto) 0.2 Neutrophils # (Auto) 3.6 Lymphocytes # (Auto) 4.1 Monocytes # (Auto) 1.0 Eosinophils # (Auto) 0.1 Basophils # (Auto) 0.0 CBC Comment DIFF FINAL Differential Comment Blood Urea Nitrogen 10 Creatinine 1.41 Random Glucose 95 Total Protein 7.4 Albumin 3.4 Calcium Level 8.2 Alkaline Phosphatase 73 Aspartate Amino Transf (AST/SGOT) 18 Alanine Aminotransferase (ALT/SGPT) 19 Total Bilirubin 0.7 Sodium Level 140 Potassium Level 3.5 Chloride Level 109 Carbon Dioxide Level 23.2 Anion Gap 8 Estimat Glomerular Filtration Rate 62 Imaging Last Impressions Lumbar Spine CT 10/25/16 0826 Signed Impressions: Service Date/Time: Tuesday, October 25, 2016 06:15 - CONCLUSION: Degenerative disc disease as described above. I do not see evidence for an inflammatory process. MRI with contrast be more sensitive for such. Timi Holm MD FACR Abdomen/Pelvis CT 10/25/16 0542 Signed Impressions: Service Date/Time: Tuesday, October 25, 2016 06:14 - CONCLUSION: Normal examination. Kelby Madrid Jr., MD Chest X-Ray 10/25/16 0338 Signed Impressions: Service Date/Time: Tuesday, October 25, 2016 04:00 - CONCLUSION: Mild cardiomegaly. Kelby Madrid Jr., MD Physical Exam HEENT: Normocephalic; atraumatic; no jaundice. CHEST: CTA CARDIAC: RRR ABDOMEN: Soft, nondistended, left inguinal/left hip tenderness no hepatosplenomegaly; bowel sounds are present in all four quadrants. EXTREMITIES: No clubbing, cyanosis, or edema. SKIN: Normal; no rash; no jaundice. HOSPITAL ADMINISTRATIVE ASSISTANT: No focal deficits; alert and oriented times three. (Maria D Harper [facility]) Assessment and Plan Plan ASSESSMENT: - N/V. Woke up with right sided hip/low back pain and n/v. He has continued to have n/v today. He reports frequent heartburn/reflux and takes Fadia [place] as needed. CT scan abdomen and pelvis with iv contrast (10/25/16 )----> normal examination. EGD (04/03/03) with Dr. Leal and this revealed gastritis in his stomach. Pathology revealed chronic gastritis with mild acute inflammatory activity. A anastacia stain reveals numerous organisms morphologically consistent with helicobacter pylori. + ETOH and this varies, usually 2-3 beers per day. S/P EGD (10/25/16)---> Irregular Z line, Erosive gastritis, Duodenal AVM. Pathology pending. PPI. - GERD. PPI - Anemia. HH stable - Right sided hip/low back pain. R/T movement, especially turning. Seems to be more musculoskeletal. Will defer to attending. PLAN: - EDA - Await pathology - PPI - Okay to d/c home from GI standpoint - FU [facility] 2 weeks - Avoid NSAIDs, ETOH - Pt seen and examined by Dr. Petersen and myself and this note is written on his behalf (Maria D Harper) Physician Comments Page seen and examined Agree with above Continue with current supportive care Monitor labs Okay for discharge from a GI standpoint Follow-up with GI post discharge (Chase Petersen MD) Maria D Harper Oct 26, 2016 11:08 Chase Petersen MD Oct 26, 2016 15:02
[2016-10-26 11:31] VITALS: BP 137/80; PULSE 63; RESP 18; TEMP 97.7; O2SAT 98
[2016-10-26] MEDS ORDERED: PANT40TA3 PO (13:00)
[2016-10-26] MEDS ORDERED: AMLO10 PO (13:00)
--- NOTE | 2016-10-26 13:01 | HHI.DCPOC ---
Discharge Care Plan Diagnosis: (1) Erosive gastritis (2) Irregular Z line of esophagus (3) Cocaine abuse Goals to Promote Your Health * To prevent worsening of your condition and complications * To maintain your health at the optimal level Directions to Meet Your Goals Take your medications as prescribed Follow your dietary instruction Follow activity as directed Keep your appointments as scheduled Take your immunizations and boosters as scheduled If your symptoms worsen call your PCP, if no PCP go to Urgent Care Center or Emergency Room Smoking is Dangerous to Your Health. Avoid second hand smoke Call the 24-hour hour crisis hotline for domestic abuse at Amrita Gillespie PA-C Oct 26, 2016 13:01
== END 2016-10-26 15:43 | disposition home or self-care (01) ==
LOC: NEPE 03:26 → NEDA 07:29 → NEPFCDU 08:26
PROVIDERS: ADMIT Internal Medicine; ATTEND Internal Medicine
DX: K29.50 Unspecified chronic gastritis without bleeding (principal); B96.81 Helicobacter pylori [H. pylori] as the cause of diseases classified elsewhere; K31.811 Angiodysplasia of stomach and duodenum with bleeding; R11.2 Nausea with vomiting, unspecified; E86.0 Dehydration; F14.10 Cocaine abuse, uncomplicated; K21.9 Gastro-esophageal reflux disease without esophagitis; K22.8 Other specified diseases of esophagus; M25.552 Pain in left hip; D64.9 Anemia, unspecified; F17.210 Nicotine dependence, cigarettes, uncomplicated; K59.00 Constipation, unspecified; I10 Essential (primary) hypertension; M77.9 Enthesopathy, unspecified; Z23 Encounter for immunization
CPT/HCPCS: 00740; 43239; 43255; 71010; 72131; 74177; 80053; 80307; 81001; 83036; 83605; 83690; 83735; 85025; 85610; 85730; 86140; 88305; 88312; 90471; 90472; 90686; 90732; 93005; 96361; 96372; 96374; 96375; 96376; 99285; C9113; G0378; J0330; J0780; J1885; J2270; J2405; J7030; J7120; Q9967; G0008; G0009; Q2038